=== PATIENT | male | born 1945 | race Caucasian/White ===

== ENCOUNTER 2016-05-23 02:20 | Emergency (ER) | payer OTHER, MEDICARE ==
[2016-05-23 02:40] VITALS: RESP 18; TEMP 96.9
[2016-05-23] MEDS ORDERED: NORMAL SALINE 10 ML SYRINGE FLUSH IVP PRN (02:44)
[2016-05-23] MEDS ORDERED: MECLIZINE 25 MG CHEWABLE TABLET PO ONE (02:45)
[2016-05-23 02:58] LABS: BASOPHILS # (AUTO) 0.05 10*3/UL; BASOPHILS % (AUTO) 0.6 % (0-1); EOSINOPHILS % (AUTO) 0.6 % (0-8); HEMOGLOBIN 15.6 g/dL (14.0-18.0); IMM GRAN % (AUTO) 0.2 % (0-5); IMM GRAN# (AUTO) 0.02 10*3/UL; LYMPHOCYTES # (AUTO) 1.81 10*3/uL; LYMPHOCYTES % (AUTO) 22.6 % (10-50); MEAN CORPUSCULAR HEMOGLOBIN 28.5 PG (27-31); MEAN CORPUSCULAR HGB CONC 33.2 g/dL (33-37); MONOCYTES # (AUTO) 0.52 10*3/UL (0.3-0.8); MONOCYTES % (AUTO) 6.5 % (5-15); NEUTROPHILS # (AUTO) 5.57 10*3/UL; NEUTROPHILS % (AUTO) 69.5 % (50-80); RDW COEFFICIENT OF VARIATION 15.1 % (11.5-14.5); RED BLOOD COUNT 5.48 10^6/uL (4.70-6.10); WHITE BLOOD COUNT 8.02 10^3/uL (4.8-10.8)
[2016-05-23 02:59] LABS: PLATELET MORPHOLOGY COMMENT NORMAL MORPHOLOGY (NORM)
[2016-05-23 03:09] LABS: ASPARTATE AMINO TRANSFERASE 19 IU/L (21-57); BILIRUBIN,TOTAL 0.4 mg/dL (0.3-1.2); BLOOD UREA NITROGEN 18 mg/dL (7-22); BUN/CREATININE RATIO 16.36 (6-20); C-REACTIVE PROTEIN 0.7 mg/dL (0.0-0.9); CHLORIDE 103 meq/L (98-112); CREATININE 1.1 mg/dL (0.70-1.50); EST GLOMERULAR FILTRATION > 60 (>60 ml/min/1.73m(2)); GLUCOSE 135 mg/dL (78-110); MAGNESIUM 2.5 mg/dL (1.6-2.4); POTASSIUM 4.1 meq/L (3.8-5.2); SODIUM 144 meq/L (135-145); TOTAL PROTEIN 7.4 g/dL (6.1-8.0)
--- NOTE | 2016-05-23 03:32 | DI ---
HISTORY: Vertigo. TECHNIQUE: Multiple helically acquired CT images are obtained through the brain without contrast. FINDINGS: CT images demonstrate mild age related volume loss. There is symmetry of the ventricles a nd other CSF containing spaces. There is no evidence of mass lesion, hemorrhage nor midline shift. Surrounding soft tissue and bony structures are unremarkable. A few vascular calcifications are seen . IMPRESSION: 1. Diffuse age-related volume loss without intracranial hemorrhage.
[2016-05-23] MEDS ORDERED: MECLIZINE 25 MG CHEWABLE TABLET PO SCH (04:00)
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
== END 2016-05-23 04:00 | disposition home or self-care (01) ==
LOC: ER 02:20
DX: H83.03 Labyrinthitis, bilateral (principal); R11.2 Nausea with vomiting, unspecified; R42 Dizziness and giddiness
CPT/HCPCS: 70450; 80053; 83735; 85025; 86140; 99283

== ENCOUNTER → 2016-11-12 | Outpatient (CLI) | payer OTHER, MEDICARE ==
--- NOTE | 2016-11-12 09:57 | DI ---
XR CXR 2VW PA/LAT,11/12/2016 9:10 AM: Clinical History: Cough Previous Exam: None at this facility. Findings: PA and lateral views of the chest are obtained, and demonstrate new airspace disease within the right lung base. There also appears to be a small right parapneumonic effusion. Impression: Right lower lobe pneumonia with small right parapneumonic effusion.
== END ==
LOC: MOB RAD 09:12
PROVIDERS: ATTEND Physician Assistant
DX: R05 Cough (principal); J18.9 Pneumonia, unspecified organism
CPT/HCPCS: 71020; 99213; G0463

== ENCOUNTER → 2016-12-04 | Outpatient (CLI) | payer OTHER, MEDICARE ==
--- NOTE | 2016-12-04 10:10 | DI ---
PA /LATERAL CHEST X-RAY, 12/04/2016 9:36 AM : Clinical History: History of pneumonia. Followup exam to the study showing a right lower lobe pneumon ia on 11/12/2016. Previous Exam: 11/12/2016. There is no acute soft tissue or bony abnormality. Heart size is normal. Lungs are clear. The right l ower lobe pneumonia has resolved without sequelae. Mediastinal structures are normal. There are no pu lmonary nodules. Reading: Normal chest x-ray. The right lower lobe pneumonia has resolved.
== END ==
LOC: MOB RAD 09:41
PROVIDERS: ATTEND Physician Assistant
DX: Z87.01 Personal history of pneumonia (recurrent) (principal)
CPT/HCPCS: 71020